=== PATIENT | female | born 1985 | race Caucasian/White ===

== ENCOUNTER 2017-02-20 15:42 | Emergency (ER) | payer OTHER ==
[~2017-02-20] VITALS: Ht 162.6 cm; Wt 63.0 kg
[2017-02-20 15:51] VITALS: BP 136/89
--- NOTE | 2017-02-20 16:07 | ED DYSPNEA/ASTHMA COMPLAINT ---
History of Present Illness General Chief Complaint: General Adult Stated Complaint: "I FEEL LIKE I CAN NOT BREATHE" Source: patient Exam Limitations: no limitations Vital Signs & Intake/Output Vital Signs & Intake/Output Vital Signs Date Time Temp Pulse Resp B/P Pulse O2 O2 Flow FiO2 Ox Delivery Rate 02/20 1551 97.9 66 18 136/89 99 Room Air Allergies Coded Allergies: No Known Allergies (02/20/17) Reconcile Medications Hydroxyzine Pamoate (Vistaril) 25 MG CAPSULE 1 CAP PO TID PRN ANXIETY Triage Note: PT TO ED C/O "I CAN'T BREATHE", PT CRYING, SPEAKING IN FULL SENTENCES. STATES SHE WORKED OUT AND FELT FINE BUT "ITS JUST WORSE ITS DIFFERENT". PT REPORTING SEVERE ANXIETY AT BASELINE. STATING SHE ATTEMPTED TO "MEDITATE, WORKOUT AND WENT TO GET ACUPUNCTURE BUT THIS BREATHING IS DIFFERENT." DENIES CP, PALPITATIONS, PT REPORTING THE SAUNA AT THE GYM HELPS IMPROVE SOB. Triage Nurses Notes Reviewed? yes : No Patient currently breastfeeds: No HPI: Patient presents with increasing anxiety. Patient states that her anxiety gets up at that then she gets chest tightness and feels that she can't breathe. Similar symptoms multiple times in the past. Patient states when her anxiety is not acting up she does not have any chest tightness or shortness of breath. Today is her 32th birthday and she is going [place] but she was having anxiety attacks or swelling. Admission everything was okay. Patient denies any fevers or chills. There is no orthopnea. There is no suicidal or homicidal ideations. Patient has been taking multiple different supplements while she is working out in the gym. Past History Travel History Traveled to [place] past 21 day No Medical History Any Pertinent Medical History? see below for history Neurological: NONE EENT: NONE Cardiovascular: NONE Respiratory: NONE Gastrointestinal: NONE Hepatic: NONE Renal: NONE Musculoskeletal: NONE Psychiatric: anxiety, bipolar disease Endocrine: NONE Blood Disorders: NONE Cancer(s): NONE AVIATION MAINTENANCE TECHNICIAN/Reproductive: NONE Surgical History Surgical History: non-contributory Psychosocial History What is your primary language Scottish Tobacco Use: Current Daily Use Daily Tobacco Use Amount/Type: => 5 Cigarettes daily ETOH Use: occasional use Illicit Drug Use: marijuana Family History Hx Contributory? No Review of Systems Review of Systems Constitutional: Reports: no symptoms. EENTM: Reports: no symptoms. Respiratory: Reports: see HPI, short of breath. Cardiovascular: Reports: see HPI, chest pain. GI: Reports: no symptoms. Genitourinary: Reports: no symptoms. Musculoskeletal: Reports: no symptoms. Skin: Reports: no symptoms. Neurological/Psychological: Reports: see HPI, anxiety. Hematologic/Endocrine: Reports: no symptoms. Immunologic/Allergic: Reports: no symptoms. All Other Systems: Reviewed and Negative Physical Exam Physical Exam General Appearance: well developed/nourished, alert, awake, anxious, mild distress Head: atraumatic, normal appearance Eyes: Bilateral: PERRL, EOMI. Ears, Nose, Throat: normal pharynx, normal ENT inspection, hearing grossly normal Neck: normal inspection, supple, full range of motion Respiratory: normal breath sounds, chest non-tender, no respiratory distress, lungs clear Cardiovascular: regular rate/rhythm, normal peripheral pulses Gastrointestinal: normal bowel sounds, soft, non-tender Extremities: normal inspection, normal capillary refill, normal range of motion, no edema Neurologic/Psych: no motor/sensory deficits, awake, alert, oriented x 3, normal gait, normal mood/affect Skin: intact, normal color, warm/dry Lymphatic: no anterior cervical vamsi Core Measures ACS in differential dx? No Severe Sepsis Present: No Septic Shock Present: No Progress Differential Diagnosis: asthma, bronchitis, costochondritis, pulmonary embolism, pneumonia, ANXIETY Plan of Care: Orders Procedure Date/time Status EKG 02/20 1617 Active Initial ED EKG: NSR, no ST T wave changes Comments: Patient states that she needs to get to a democrat and cannot say for blood work. Patient promises to follow-up with her primary care physician, her therapist will return here to the emergency room for further evaluation. Departure Departure Disposition: HOME OR SELF CARE Condition: Stable Clinical Impression Primary Impression: Anxiety Referrals: JESSICA VILLASENOR (PCP/Family) Additional Instructions: RETURN IF SYMPTOMS WORSEN OR FOR ANY CONCERNS Departure Forms: Customer Survey General Discharge Information Prescriptions: Current Visit Scripts Hydroxyzine Pamoate (Vistaril) 1 CAP PO TID PRN ANXIETY #30 CAP Critical Care Note Critical Care Note Critical Care Time: non-applicable
[2017-02-20] MEDS ORDERED: VISTARIL25 M1 PO (16:33)
== END 2017-02-20 16:45 ==
LOC: ERH 15:42
DX: F41.9 Anxiety disorder, unspecified (principal); R07.89 Other chest pain
CPT/HCPCS: 93005; 93010